=== PATIENT | female | born 1995 | race Caucasian/White ===

== ENCOUNTER 2024-02-26 19:52 | Emergency (ER) | payer OTHER ==
[~2024-02-26] VITALS: Ht 152.4 cm; Wt 108.9 kg
[2024-02-26] MEDS ORDERED: LORAZEPAM 2 MG/1 ML VIAL ONE (20:32)
[2024-02-26 20:35] LABS: BASOPHILS # (AUTO) 0.1 K/UL (0.0-0.2); BASOPHILS % (AUTO) 0.6 % (0.0-2.0); EOSINOPHILS # (AUTO) 0.1 K/uL (0.0-0.7); EOSINOPHILS % (AUTO) 1.1 % (0.0-7.0); HEMATOCRIT 44.7 % (31.2-41.9); LYMPHOCYTES # (AUTO) 1.9 K/uL (0.8-4.8); LYMPHOCYTES % (AUTO) 16.9 % (20.5-51.5); MEAN CORPUSCULAR HEMOGLOBIN 29.2 uug (24.7-32.8); MEAN CORPUSCULAR HGB CONC 34 g/dL (32.3-35.6); MEAN CORPUSCULAR VOLUME 87.1 fL (75.5-95.3); MONOCYTES # (AUTO) 0.6 K/uL (0.1-1.30); MONOCYTES % (AUTO) 5.5 % (0.0-11.0); NEUTROPHILS # (AUTO) 8.5 K/uL (1.8-8.9); NEUTROPHILS % (AUTO) 75.9 % (38.5-71.5); PLATELET COUNT (AUTO) 236 K/uL (179-408); RED BLOOD CELL COUNT(AUTO) 5.13 MIL/uL (3.63-4.92); RED CELL DISTRIBUTION WIDTH 13.3 % (12.3-17.7); WHITE BLOOD COUNT (AUTO) 11.1 K/uL (3.8-11.8)
[2024-02-26] MEDS: IV NORMAL SALINE 1000 ML BAG IV ONE (20:43)
[2024-02-26] MEDS: LORAZEPAM 2 MG/1 ML VIAL IV ONE (20:43)
[2024-02-26 20:44] LABS: DIFFERENTIAL COMMENT 1
[2024-02-26 20:57] LABS: ETHANOL < 3 MG/DL (0-10)
[2024-02-26 21:02] LABS: ALANINE AMINOTRANSFERASE 173 U/L (14-59); ALBUMIN 3.6 g/dL (3.4-5.0); ALKALINE PHOSPHATASE 42 U/L (50-136); ASPARTATE AMINOTRANSFERASE 75 U/L (15-37); BILIRUBIN,DIRECT 0.2 mg/dL (0.0-0.2); BILIRUBIN,TOTAL 0.6 mg/dL (0.2-1.0); CALCIUM 9.6 mg/dL (8.5-10.1); CARBON DIOXIDE 27 mmol/L (21-32); CHLORIDE 95 mmol/L (98-107); CREATININE 1.2 mg/dL (0.6-1.3); GLUCOSE 161 mg/dL (74-106); SODIUM SERUM 137 mmol/L (136-145); TOTAL PROTEIN, SERUM 7.3 g/dL (6.4-8.2); UREA NITROGEN, BLOOD 9 mg/dL (7-18)
[2024-02-26 21:04] LABS: POTASSIUM 2.4 mmol/L (3.5-5.1)
[2024-02-26] MEDS: POTASSIUM CHLORIDE 20 MEQ TAB.PRT.SR PO ONE (21:28)
[2024-02-26] MEDS: POTASSIUM CHLORIDE 40 MEQ in IV D5W 1000ML 1,000 ML IV STA (21:40)
[2024-02-26] MEDS ORDERED: POTASSIUM CHLORIDE 200 ML ONE (21:43)
[2024-02-26 23:33] LABS: *BILIRUBIN,URIN NEGATIVE (NEGATIVE); *BLOOD, URINE 2+ (NEGATIVE); *CLARITY,URINE CLEAR (CLEAR); *COLOR,URINE YELLOW (YELLOW); *KETONES,URINE NEGATIVE (NEGATIVE); *PROTEIN,URINE NEGATIVE (NEGATIVE); *UROBILINOGEN,URINE 0.2 E.U./dl (NORMAL); LEUKOCYTE ESTERASE ,URINE TRACE (NEGATIVE); NITRITE, URINE NEGATIVE (NEGATIVE); PH,URINE 7.5 (5.0-8.0); UGLUCOSE NEGATIVE (NEGATIVE)
[2024-02-26 23:35] LABS: *URINE HCG, QUAL NEGATIVE (NEGATIVE)
[2024-02-26 23:42] LABS: CALCIUM 9.1 mg/dL (8.5-10.1); CREATININE 1.1 mg/dL (0.6-1.3)
[2024-02-26 23:44] LABS: POTASSIUM 2.6 mmol/L (3.5-5.1)
[2024-02-26] MEDS ORDERED: POTASSIUM CHLORIDE 20 MEQ TAB.PRT.SR ONE (23:49)
[2024-02-26 23:51] LABS: *AMPHETAMINE, URINE POSITIVE (NEGATIVE); *BARBITURATE, URINE NEGATIVE (NEGATIVE); *BENZODIAZEPINE, URINE POSITIVE (NEGATIVE); *CANNABINOID, URINE NEGATIVE (NEGATIVE); *COCCAINE, URINE NEGATIVE (NEGATIVE); *OPIATE, URINE POSITIVE (NEGATIVE); *PHENCYCLIDINE SCREEN,URINE NEGATIVE (NEGATIVE); FENTANYL, URINE NEGATIVE (NEGATIVE)
[2024-02-26 23:53] LABS: BACTERIA,URINE MODERATE /HPF (NONE SEEN); SQUAMOUS EPITHELIAL CELL,UR MODERATE /HPF (NONE SEEN)
[2024-02-26 23:56] LABS: WBC,URINE 0-3 /HPF (0-3)
[2024-02-27] MEDS: POTASSIUM CHLORIDE 20 MEQ TAB.PRT.SR PO ONE ×2 (00:31→04:06)
[2024-02-27] MEDS: MAGNESIUM SULFATE/D5W 100 ML IV ONE (00:56)
[2024-02-27] MEDS ORDERED: MAGNESIUM SULFATE/D5W 100 ML ONE (02:19)
[2024-02-27 02:49] LABS: CALCIUM 8.8 mg/dL (8.5-10.1); POTASSIUM 3.2 mmol/L (3.5-5.1)
[2024-02-27] MEDS ORDERED: POTASSIUM CHLORIDE 20 MEQ TAB.PRT.SR ONE (04:05)
[2024-02-27 04:19] VITALS: BP 123/78; TEMP 97.8; O2SAT 97
== END 2024-02-27 04:10 | disposition home or self-care (01) ==
LOC: ER 20:06
DX: F19.90 Other psychoactive substance use, unspecified, uncomplicated (principal); E86.0 Dehydration; E87.6 Hypokalemia; R10.2 Pelvic and perineal pain; R07.89 Other chest pain; J45.909 Unspecified asthma, uncomplicated; Z88.1 Allergy status to other antibiotic agents
CPT/HCPCS: 80076; 80048 ×3; 81001; 82962; 84703; 85025; 84484; 36415 ×2; 93005; 71045; 99285; 96361; 96365; 96366; 96375; 87086; 80320; 80307; 96367; J2060; J3480; J7070; J7040 ×3; J3475; A4606; A4663; G0480

== ENCOUNTER 2025-08-21 13:37 | Inpatient (IN) | payer BC, OTHER ==
[~2025-08-21] VITALS: Ht 157.5 cm; Wt 99.8 kg
[2025-08-21 14:07] LABS: PLATELET COUNT (AUTO) 286 K/uL (179-408); RED BLOOD CELL COUNT(AUTO) 4.91 MIL/uL (3.63-4.92); RED CELL DISTRIBUTION WIDTH 19.0 % (12.3-17.7); WHITE BLOOD COUNT (AUTO) 8.5 K/uL (3.8-11.8)
[2025-08-21 14:16] LABS: CREATININE 0.9 mg/dL (0.6-1.3); SODIUM SERUM 142.0 mmol/L (136-145); UREA NITROGEN, BLOOD 14.0 mg/dL (7-18)
[2025-08-21 14:20] LABS: *BLOOD, URINE NEGATIVE (NEGATIVE); *CLARITY,URINE CLEAR (CLEAR); *COLOR,URINE YELLOW (YELLOW); *KETONES,URINE TRACE (NEGATIVE); *PROTEIN,URINE 1+ (NEGATIVE); *UROBILINOGEN,URINE 0.2 E.U./dl (NORMAL); LEUKOCYTE ESTERASE ,URINE NEGATIVE (NEGATIVE); NITRITE, URINE NEGATIVE (NEGATIVE); UGLUCOSE NEGATIVE (NEGATIVE)
[2025-08-21 14:21] LABS: ASPARTATE AMINOTRANSFERASE 16.0 U/L (15-37); TOTAL PROTEIN, SERUM 7.8 g/dL (6.4-8.2)
[2025-08-21 14:27] LABS: *AMPHETAMINE, URINE NEGATIVE (NEGATIVE); *BARBITURATE, URINE NEGATIVE (NEGATIVE); *BENZODIAZEPINE, URINE NEGATIVE (NEGATIVE); *CANNABINOID, URINE POSITIVE (NEGATIVE); *COCCAINE, URINE NEGATIVE (NEGATIVE); *OPIATE, URINE NEGATIVE (NEGATIVE); *PHENCYCLIDINE SCREEN,URINE NEGATIVE (NEGATIVE); FENTANYL, URINE NEGATIVE (NEGATIVE)
[2025-08-21] MEDS: IV NORMAL SALINE 1000 ML BAG IV ONE (14:39)
[2025-08-21 14:40] LABS: *BILIRUBIN,URIN 1+ (NEGATIVE)
[2025-08-21] MEDS ORDERED: ONDANSETRON 4 MG/2 ML VIAL ONE (14:47)
[2025-08-21] MEDS: HYDROMORPHONE 1 MG/1 ML DISP.SYRIN IV ONE ×3 (14:48→20:34)
[2025-08-21] MEDS ORDERED: HYDROMORPHONE 1 MG/1 ML DISP.SYRIN ONE ×3 (14:48→20:25)
[2025-08-21] MEDS: ONDANSETRON 4 MG/2 ML VIAL IV ONE (14:48)
[2025-08-21 14:54] LABS: *URINE HCG, QUAL NEGATIVE (NEGATIVE)
[2025-08-21] MEDS ORDERED: LORAZEPAM 2 MG/1 ML VIAL ONE (15:27)
[2025-08-21] MEDS: LORAZEPAM 2 MG/1 ML VIAL IV ONE (15:30)
[2025-08-21] MEDS ORDERED: POTASSIUM BICARBONATE/CIT AC 25 MEQ TABLET.EFF ONE (17:02)
[2025-08-21] MEDS: POTASSIUM BICARBONATE/CIT AC 25 MEQ TABLET.EFF PO ONE (17:06)
[2025-08-21] MEDS ORDERED: SWABABLE VALVE TRANSFER SET EA MC ONE (17:11)
[2025-08-21] MEDS ORDERED: IV NORMAL SALINE 250 ML IV ONE (17:11)
[2025-08-21] MEDS ORDERED: IOHEXOL 300MG/ML 100 ML INFUS..BTL ONE (17:11)
[2025-08-21] MEDS ORDERED: PROCHLORPERAZINE EDISYLATE 10 MG/2 ML VIAL ONE (17:30)
[2025-08-21] MEDS: IV NS 1000 ML 1,000 ML IV ONE (17:49)
[2025-08-21] MEDS: POTASSIUM CHLORIDE 50 ML IV SCH (17:50)
[2025-08-21] MEDS ORDERED: POTASSIUM CHLORIDE 200 ML ONE (17:50)
[2025-08-21] MEDS: PROCHLORPERAZINE EDISYLATE 10 MG/2 ML VIAL IV ONE (18:03)
[2025-08-21] MEDS: IV NS 1000 ML 1,000 ML IV SCH (19:00)
[2025-08-21 19:30] VITALS: BP 122/72
[2025-08-21] MEDS: CEFEPIME (MAXEPIME) 1 G in IV DEXTROSE 5% 50 ML IV SCH (22:00)
[2025-08-21 22:12] VITALS: BP 109/71; TEMP 97.9; O2SAT 93
[2025-08-21] MEDS: MORPHINE SULFATE 2 MG/1 ML DISP.SYRIN IVP PRN (22:13)
[2025-08-21] MEDS: ONDANSETRON 4 MG/2 ML VIAL IV PRN (22:13)
[2025-08-21] MEDS ORDERED: CEFEPIME HCL 1 G VIAL ONE (22:50)
[2025-08-21] MEDS ORDERED: POTASSIUM CHLORIDE 50 ML ONE (23:23)
[2025-08-22 05:30] VITALS: BP 103/49; TEMP 97.8; O2SAT 97
[2025-08-22 07:09] LABS: PLATELET COUNT (AUTO) 256 K/uL (179-408); RED BLOOD CELL COUNT(AUTO) 4.56 MIL/uL (3.63-4.92); RED CELL DISTRIBUTION WIDTH 18.4 % (12.3-17.7); WHITE BLOOD COUNT (AUTO) 6.7 K/uL (3.8-11.8)
[2025-08-22 07:31] LABS: ASPARTATE AMINOTRANSFERASE 17.0 U/L (15-37); CREATININE 0.6 mg/dL (0.6-1.3); SODIUM SERUM 138.0 mmol/L (136-145); TOTAL PROTEIN, SERUM 6.4 g/dL (6.4-8.2); UREA NITROGEN, BLOOD 7.0 mg/dL (7-18)
[2025-08-22 07:50] VITALS: BP 132/58; TEMP 97.8; O2SAT 96
[2025-08-22 08:00] VITALS: BP 100/96; TEMP 97.8; O2SAT 97
[2025-08-22] MEDS: HEPARIN SODIUM,PORCINE 5,000 UNITS/ML VIAL SQ SCH (08:42)
[2025-08-22] MEDS ORDERED: GABA300C PO (11:37)
[2025-08-22] MEDS ORDERED: METH-807 PO (11:38)
[2025-08-22] MEDS ORDERED: TIRZ5PEN SQ (11:40)
[2025-08-22 12:00] VITALS: BP 97/57; TEMP 97; O2SAT 96
[2025-08-22] MEDS ORDERED: METHOCARBAMOL 750 MG TABLET PO PRN (12:15)
[2025-08-22] MEDS: GABAPENTIN 300 MG CAPSULE PO SCH (13:01)
[2025-08-22] MEDS ORDERED: PANTOPRAZOLE SODIUM 40 MG VIAL IV SCH (15:15)
[2025-08-22] MEDS: PANTOPRAZOLE SODIUM 40 MG TABLET.DR PO SCH (15:30)
[2025-08-22] MEDS: ACETAMINOPHEN 325 MG TABLET PO PRN (15:34)
[2025-08-22 16:00] VITALS: BP 112/50; TEMP 97.7; O2SAT 97
[2025-08-22] MEDS ORDERED: METR-147 PO (16:28)
[2025-08-22] MEDS ORDERED: CIPR500S2 PO (16:28)
== END 2025-08-22 17:10 | disposition home or self-care (01) | DRG 446 ==
LOC: ER 13:37 → MEDSURG3 20:48
PROVIDERS: ADMIT Internal Medicine; ATTEND Internal Medicine
DX: K80.10 Calculus of gallbladder with chronic cholecystitis without obstruction (principal); E87.6 Hypokalemia; M32.9 Systemic lupus erythematosus, unspecified; J45.909 Unspecified asthma, uncomplicated; K52.9 Noninfective gastroenteritis and colitis, unspecified; N83.201 Unspecified ovarian cyst, right side; L90.5 Scar conditions and fibrosis of skin
CPT/HCPCS: 36415; 78445; 83605; 83690; 83735; 84100; 84703; 85025; A4663; A9537; G0378; J0692; J0780; J1171; J1644; J2060; J2270; J2405; J3480; J7040; Q9967